=== PATIENT | male | born 2005 | race Caucasian/White ===

== ENCOUNTER 2025-03-19 09:01 | Outpatient (AMB) | payer OTHER, SELFPAY ==
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
[2025-03-19 09:08] VITALS: BP 104/60; PULSE 58; TEMP 37; O2SAT 97; BMI 21.1
--- OUTSIDE RECORDS SUMMARY | 2025-03-19 09:28 | XMS_ITS | Clinical Summary ---
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 Will treat with topical antibiotic. Family disruption due to child in foster care Overview (08/19/2019): 09/28/2018 - DCF 7 day screen. 08/19/2019 - DCF 7 day screen. Assessment & Plan (08/19/2019 6:28 PM EST): 7 day screen. Patient currently at a program. Assessment & Plan (05/02/2019 1:58 PM EDT): [facility], [employer] for [employer] year, hopes to play cross country Resolved Problems Problem Noted Date Diagnosed Date Resolved Date Slow transit constipation 02/07/2017 Overview (07/03/2018): Constipation (564.01) Onset: 02/07/2017 Added by: Cody Diallo Immunizations Immunization Administration Dates Next Due DTaP / Hep B / IPV 2004 DTaP 5 04/23/2009, 9,11/30/2005, 005,2004 HPV Vaccine 9 Valent 07/25/2016,07/21/2015 Hep A, ped/adol 09/15/2020,09/06/2019 Hep B, ped/adol 2004,2004 Hib (PRP-T) 11/30/2005, 5,2004, 004 IPV 04/23/2009,2004,2004 MMR 04/23/2009,04/25/2005 Meningococcal Conj (Menactra) MCV4P 09/15/2020,1 09/20/2014 Pneumococcal Conjugate 09/28/2005,2004,2004, 004 Tdap 07/21/2015 Varicella 04/23/2009,06/23/2006 Family History Relation Name Status Comments Father Keo Alive Mother Thalia Alive Sister 1 Leodan Alive Sister 2 Shasta Alive Sister 3 Yael Alive Social History Tobacco Use Types Packs/Day Years Used Date Smoking Tobacco: Never Smokeless Tobacco: Never Comments:Never Smoker Hunger/Food Answer Date Recorded In the last 12 months, did y ou or your family ever eat less than you felt you should because there wasn't enough money for food? No 09/15/2020 Stable Housing Answer Date Recorded Are you worried that in the next 2 months you may not have stable housing? No 09/15/2020 Transportation Concerns Answer Date Rec orded In the last 12 months, have you or your family ever had to go without healthcare because you didn't have a way to get there? No 09/15/2020 Hazards in Home Answer Date Recorded Think about the place you li ve. Do you have problems with any of the following? Pests (mice or roaches), mold, no/not working smoke detectors, water leaks, no window guards. Yes 2020 Financing Utilities Answer Date Recorde d In the last 12 months, has t he electric, gas, oil, or water company threatened to shut off your services in your home? No 09/15/2020 Safety at Home Answer Date Recorded Are you or your family worried about feeling saf e in your home? No 09/15/2020 Outside Support Answer Date Recorded Do you feel that you need mo re support from other people or programs to help you care for yourself or your family? No 09/15/2020 Understanding Health Concerns Answer Da te Recorded Do you need help understandi ng your or your child's healthcare needs (diagnosis, medications, plan, etc.)? No 09/15/2020 Financing Health Concerns Answer Date R ecorded In the last 12 months, was t here a time when your child needed to see a doctor or get medications or supplies but could not because of cost? No 09/15/2020 Missing School or Work Answer Date José Luis rded Did you or your child miss s chool or work because of a health problem that could have been avoided? No 09/15/2020 Sex and Gender Information Value Date Recorded Sex Assigned at Not on file Legal Sex Male 6:39 PM EDT Gender Identity Not on file Sexual Orientation Not on file Last Filed Vital Signs Vital Sign Reading Time Taken Comments Blood Pressure 108/60 02/22/2022 1:48 PM EDT Pulse 75 02/22/2022 1:48 PM EDT Temperature 36.4 C (97.6 F) 02/22/2022 1:48 PM EDT Respiratory Rate - - Oxygen Saturation - - Inhaled Oxygen Concentration - - Weight 56.2 kg (124 lb) 02/22/2022 1:48 PM EDT Height 169 cm (5' 6.54 ) 02/22/2022 1:48 PM EDT Body Mass Index 19.69 02/22/2022 1:48 PM EDT Plan of Treatment Health Maintenance Due Date Last Done Comments Men B Vaccine (1 of 2 - Standard) 2020 COVID-19 Vaccine (2023-2 5 season) 2024 Influenza Vaccines (#1) 2025 DTaP,Tdap,and Td Vaccines (7 - Td or Tdap) 07/21/2025 07/21/2015, 04/23/2009, 12/29/2008, Additional history exists Hepatitis B Vaccines Completed 2004, 2004, 2004 Pneumococcal Vaccine Completed 09/28/2005, 2004, 2004, Additional history exists HIB Vaccines Completed 11/30/2005, 10/27, 2004, Additional history exists IPV Vaccines Completed 04/23/2009, 10/27, 2004, Additional history exists MMR Vaccines Completed 04/23/2009, 04/25/2005 Varicella Vaccines Completed 04/23/2009, 06/23/2006 HPV Vaccines Completed 07/25/2016, 07/21/2015 Hepatitis A Vaccines Completed 09/15/2020, 09/06/19 20 Meningococcal Vaccine Completed 09/15/2020, 015 Insurance [employer]
== END 2025-03-19 11:01 | disposition home or self-care (01) ==
PROVIDERS: Visit Provider Physician Assistant
DX: M25.532 Pain in left wrist (principal)

== ENCOUNTER 2025-03-19 09:01 | Outpatient (REF) | payer OTHER, SELFPAY ==
--- NOTE | ~2025-03-19 | XR_ITS ---
EXAMINATION: XR WRIST, LEFT CLINICAL INFORMATION: W18.00XA - Striking against unspecified object with subsequent fall, ini... COMPARISON: None available. TECHNIQUE: Four views of the left wrist. FINDINGS: The bones and soft tissues are normal. No fracture. Alignment is anatomic with normal joint spaces. No erosions or abnormal soft tissue calcifications. XR/XR wrist LT w scaphoid IMPRESSION: Normal left wrist. Electronically signed by: Nikita Walsh MD 03/19/2025 09:49 AM EDT
== END 2025-03-19 09:02 | disposition home or self-care (01) ==
LOC: HO.HMGCX 09:01
PROVIDERS: PCP Pediatrics; Visit Provider Physician Assistant
DX: M25.532 Pain in left wrist (principal); W18.00XA Striking against unspecified object with subsequent fall, initial encounter
CPT/HCPCS: 73110; 99202

== ENCOUNTER → 2025-03-19 09:32 | Outpatient (BNV) | payer OTHER, SELFPAY | PROVIDERS: PCP Pediatrics; Visit Provider Radiology Diagnostic Radiology | DX: M25.532 Pain in left wrist (principal) | CPT/HCPCS: 73110 ==